=== PATIENT | female | born 1960 | race Caucasian/White ===

== ENCOUNTER → 2021-03-10 | Outpatient (CLI) | payer OTHER ==
[2021-03-10 12:59] LABS: HEMOGLOBIN 15.1 gm/dl (12.3-15.3); RED BLOOD COUNT 5.17 M/UL (4.00-5.10)
[2021-03-10 13:24] LABS: BUN/CREATININE RATIO 18 (0-10)
[2021-03-11 09:13] LABS: VITAMIN D, 25-HYDROXY 16.2 ng/mL (30.0-100.0)
[2021-03-11 12:14] LABS: RHEUMATOID ARTHRITIS FACTOR <10.0 IU/mL (<14.0)
== END ==
LOC: RAD 10:45
PROVIDERS: Nurse Practitioner Family
DX: M54.2 Cervicalgia (principal); M79.641 Pain in right hand; M79.642 Pain in left hand; M25.50 Pain in unspecified joint; M79.10 Myalgia, unspecified site; E55.9 Vitamin D deficiency, unspecified; M47.812 Spondylosis without myelopathy or radiculopathy, cervical region; M19.042 Primary osteoarthritis, left hand; M19.041 Primary osteoarthritis, right hand; M19.032 Primary osteoarthritis, left wrist; M19.031 Primary osteoarthritis, right wrist
CPT/HCPCS: 36415; 72040; 73130; 80053; 82150; 82550; 82728; 83520; 83690; 84439; 84443; 85025; 85652; 86140; 86200; 86431

== ENCOUNTER → 2021-07-07 | Outpatient (CLI) | payer OTHER | LOC: CT 11:30 | DX: C25.2 Malignant neoplasm of tail of pancreas (principal); C78.7 Secondary malignant neoplasm of liver and intrahepatic bile duct; C78.6 Secondary malignant neoplasm of retroperitoneum and peritoneum; R91.8 Other nonspecific abnormal finding of lung field | CPT/HCPCS: 71260; Q9967 ==